=== PATIENT | male | born 1975 | race Caucasian/White ===

== ENCOUNTER 2017-04-07 13:15 | Inpatient (IN) | payer BC, OTHER ==
[~2017-04-07] VITALS: Ht 175.3 cm; Wt 119.7 kg
[2017-04-07] MEDS ORDERED: ONDANSETRON 4 MG/2 ML (SDV) Z0FRAN IVP ONE (13:30)
[2017-04-07] MEDS ORDERED: fentaNYL INJECTION 100 MCG/2 ML AMP IVP ONE (13:30)
[2017-04-07] MEDS ORDERED: NS IV 1000 ML 1,000 ML IV SCH ×3 (13:30→15:15)
--- NOTE | 2017-04-07 13:37 | ED Abdominal Pain ---
General Stated Complaint: STOMACH PAIN Source of Information: Patient Exam Limitations: No Limitations History of Present Illness Time Seen By Provider: 13:33 Initial Comments To ER with mid upper abdominal pain. This began about a week ago and his primary care provider in his home town in [place] started him on Carafate and omeprazole. He reports that these do help. Prior to this he been drinking some hard liquor a couple times per week and states that he typically drinks 5 beers per day however, he's not had any beer since Thursday the 04/03/17. Last night he got some Verena Mix and made a verena. Since then he's had persistent epigastric and mid upper abdominal pain. He has associated nausea but no vomiting. He does also have some diarrhea with this. He took over-the- counter Imodium as well for the diarrhea and states that that has helped with the diarrhea. 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 He had peanut butter last night for dinner thinking that that might help coat his stomach but he has not had any relief from that. He's not had anything to eat since last night associated nausea. Severity/Quality: Moderate Location: Periumbilical Associated Symptoms: No Back Pain, No Chest Pain, No Fever/Chills, Nausea/ Vomiting Allergies and Home Medications Allergies Coded Allergies: No Known Drug Allergies (Unverified , 04/07/17) Home Medications Amlodipine Bes/Olmesartan Med 1 Each Tablet, Unknown Dose PO, (Reported) Citalopram Hydrobromide 10 Mg Tablet, Unknown Dose PO, (Reported) Metformin HCl 500 Mg Tablet, Unknown Dose PO, (Reported) Methylphenidate HCl 18 Mg Tab.er.24, Unknown Dose PO, (Reported) Omeprazole 20 Mg Capsule.dr, Unknown Dose PO, (Reported) Sucralfate 1 Gm Tablet, 1 GM PO QID, (Reported) Vardenafil HCl 5 Mg Tablet, Unknown Dose PO, (Reported) Review of Systems Constitutional: see HPI EENTM: No Symptoms Reported Respiratory: No Symptoms Reported Cardiovascular: No Symptoms Reported Gastrointestinal: See HPI, Abdominal Pain, Nausea Genitourinary: No Symptoms Reported Musculoskeletal: no symptoms reported Skin: no symptoms reported Psychiatric/Neurological: No Symptoms Reported Past Gvuiptb-Ckfmsu-Yrynsc Hx Patient Social History Recent Foreign Travel: No Contact w/Someone Who Travel: No Physical Exam Vital Signs VS - Last 72 Hours, by Label 04/07/17 13:25 Temp 98.1 Pulse 106 Resp 18 B/P (MAP) 108/63 Pulse Ox 95 Capillary Refill : General Appearance: WD/WN, no apparent distress HEENT: PERRL/EOMI, normal ENT inspection Neck: non-tender, full range of motion Respiratory: normal breath sounds, no respiratory distress, no accessory muscle use Cardiovascular: regular rate, rhythm, no murmur Gastrointestinal: normal bowel sounds, soft, tenderness (mid upper abdomen) Extremities: normal range of motion, non-tender Neurologic/Psychiatric: alert, normal mood/affect, oriented x 3 Skin: normal color, warm/dry Progress/Results/Core Measures Results/Orders Lab Results Laboratory Tests Test 04/07/17 13:35 Range/Units White Blood Count 8.8 4.3-11.0 10^3/uL Red Blood Count 5.38 4.35-5.85 10^6/uL Hemoglobin 16.1 13.3-17.7 G/DL Hematocrit 46 40-54 % Mean Corpuscular Volume 85 80-99 FL Mean Corpuscular Hemoglobin 30 25-34 PG Mean Corpuscular Hemoglobin Concent 35 32-36 G/DL Red Cell Distribution Width 14.1 10.0-14.5 % Platelet Count 277 130-400 10^3/uL Mean Platelet Volume 10.7 H 7.4-10.4 FL Neutrophils (%) (Auto) 63 42-75 % Lymphocytes (%) (Auto) 27 12-44 % Monocytes (%) (Auto) 8 0-12 % Eosinophils (%) (Auto) 1 0-10 % Basophils (%) (Auto) 1 0-10 % Neutrophils # (Auto) 5.5 1.8-7.8 X 10^3 Lymphocytes # (Auto) 2.4 1.0-4.0 X 10^3 Monocytes # (Auto) 0.7 0.0-1.0 X 10^3 Eosinophils # (Auto) 0.1 0.0-0.3 10^3/uL Basophils # (Auto) 0.0 0.0-0.1 10^3/uL Sodium Level 139 135-145 MMOL/L Potassium Level 5.5 H 3.6-5.0 MMOL/L Chloride Level 108 H 98-107 MMOL/L Carbon Dioxide Level 15 L 21-32 MMOL/L Anion Gap 16 H 5-14 MMOL/L Blood Urea Nitrogen 61 H 7-18 MG/DL Creatinine 3.30 H 0.60-1.30 MG/DL Estimat Glomerular Filtration Rate 21 BUN/Creatinine Ratio 18 Glucose Level 99 70-105 MG/DL Calcium Level 10.3 H 8.5-10.1 MG/DL Total Bilirubin 0.8 0.1-1.0 MG/DL Aspartate Amino Transf (AST/SGOT) 30 5-34 U/L Alanine Aminotransferase (ALT/SGPT) 44 0-55 U/L Alkaline Phosphatase 119 40-136 U/L Total Protein 8.7 H 6.4-8.2 GM/DL Albumin 4.9 H 3.2-4.5 GM/DL Amylase Level 110 25-125 U/L Lipase 86 H 8-78 U/L Serum Alcohol < 10 <10 MG/DL My Orders Orders - LAYA HEADLEY APRN Cbc With Automated Diff (04/07/17 13:30) Comprehensive Metabolic Panel (04/07/17 13:30) Ua Culture If Indicated (04/07/17 13:30) Amylase (04/07/17 13:30) Lipase (04/07/17 13:30) Saline Lock/Iv-Start (04/07/17 13:30) Ns Iv 1000 Ml (Sodium Chloride 0.9%) (04/07/17 13:30) Ondansetron Injection (Zofran Injectio (04/07/17 13:30) Fentanyl Injection (Sublimaze Injection (04/07/17 13:30) Ct Abdomen/Pelvis Wo (04/07/17 14:06) Antacid Suspension (Mylanta Suspension (04/07/17 14:15) Lidocaine 2% Viscous 15 Ml (Xylocaine Vi (04/07/17 14:15) Alcohol (04/07/17 14:08) Gamma Glutamyl Transpeptidase (04/07/17 14:08) Ekg Tracing (04/07/17 14:09) Ns Iv 1000 Ml (Sodium Chloride 0.9%) (04/07/17 14:30) Medications Given in ED Current Medications Medications Dose Ordered Sig/Lovely Route Start Time Stop Time Status Last Admin Dose Admin Al Hydrox/Mg Hydrox/Simethicone 30 ml ONCE ONCE PO 04/07/17 14:15 04/07/17 14:16 DC 04/07/17 14:13 30 ML Lidocaine HCl 15 ml ONCE ONCE PO 04/07/17 14:15 04/07/17 14:16 DC 04/07/17 14:13 15 ML Ondansetron HCl 4 mg ONCE ONCE IVP 04/07/17 13:30 04/07/17 13:33 DC 04/07/17 13:40 4 MG Vital Signs/I&O Vital Sign - Last 12Hours 04/07/17 13:25 Temp 98.1 Pulse 106 Resp 18 B/P (MAP) 108/63 Pulse Ox 95 Diagnostic Imaging Diagonstic Imaging: CT Comments NAME: ISREAL RODRIGEZ Shayan [facility] REC#: [id number] PT STATUS: REG ER : 1975 PHYSICIAN: LAYA HEADLEY APRN ADMIT DATE: 04/07/17/ER Draft Date of Exam:04/07/17 CT ABDOMEN/PELVIS WO PROCEDURE: CT abdomen and pelvis without contrast. TECHNIQUE: Multiple contiguous axial images were obtained through the abdomen and pelvis without the use of intravenous contrast. INDICATION: Mid abdominal pain. FINDINGS: The lung bases appear clear. In the left hepatic lobe anteriorly there is a low density lesion measuring 0.9 CM with near fat attenuation. This could be a tiny hamartoma. The gallbladder, the spleen, the pancreas, and the adrenal glands appear unremarkable for unenhanced exam. There is a 1 cm low-attenuation lesion in the mid right kidney parenchyma anteriorly, may relate to a cyst. There is no hydronephrosis. No urinary tract stone is seen. The urinary bladder wall appears thickened. Correlate for possible underlying cystitis. Nonspecific calcifications are seen in the prostate which is not significantly enlarged. There is an incompletely visualized low attenuation lesion in the lower aspect of the inguinal canal on the right side measuring at least 3.3 CM in length. It is uncertain if this represents a cystic lesion within the inguinal canal or a retractile testicle. The abdominal aorta is normal in caliber. No para-aortic significantly enlarged lymph node is seen. The appendix appears normal. There are mildly prominent mesenteric lymph nodes up to 8 mm in size, of uncertain significance. There is no bowel obstruction. No significant free fluid or fluid collection in the abdomen or pelvis. The osseous structures demonstrate mild degenerative changes. There is a mild degenerative change at the SI joints. IMPRESSION: 1. There is thickening of the urinary bladder wall, may relate to cystitis. 2. There is an oval low-attenuation lesion in the lower aspect of the right inguinal canal not fully visualized on this exam. This could be a retractile testicle or a cystic lesion. Correlate clinically and with ultrasound evaluation if needed. 3. Nonspecific minimally prominent mesenteric lymph nodes are seen. These could relate to current or prior inflammatory or infectious process. Dictated on workstation # [id number] Dict: 04/07/17 1435 Trans: 04/07/17 1448 [facility] [id number] Interpreted by: LUANN HEREDIA MD Electronically signed by: Departure Communication (Admissions) Time/Spoke to Admitting Phy: 14:58 Communication I discussed the case with Dr. Petersen. We'll admit the patient, IV fluids, nausea medication, repeat industry in the morning. Progress Notes 1420- did discuss with the patient his poor kidney function. He states that he has no known history of this. He states that he has had diarrhea and he did not have any water to drink yesterday, only a glass of milk because of the nausea. I discussed with the office of his PCP Dr Cooley in [place] @ . Last BUN/Cr was 9/1.2 respectively on March 052014 according to office staff. 1509- at this time the patient's pain is completely gone after a GI cocktail and his nausea is completely gone. He states that he feels back to normal. This is likely a gastritis from his alcohol use. I did order fentanyl but he refused this because he reports that his had a history of substance abuse and as such he will not touch it himself. I did advise him of the plan to admit , hydrate and repeat labs in the morning. Hopefully his kidney function has improved and if so we will continue with the current plan. However, if there is no improvement in kidney function and I did tell him he would need to be transferred to another facility potentially or at the very least have follow-up with nephrology and he is agreeable to this. Impression Impression: Primary Impression: Nausea alone Additional Impressions: abdominal pain Acute renal failure Disposition: ADMITTED INPATIENT Condition: Stable Admissions Decision to Admit Reason: Admit from ER (General) Decision to Admit/Date: Apr 07, 2017 Time/Decision to Admit Time: 14:54 Departure-Patient Inst. Referrals: NO,LOCAL PHYSICIAN (PCP/Family) Primary Care Physician LAYA HEADLEY APRN Apr 07, 2017 13:37
[2017-04-07 13:45] LABS: BASOPHILS % (AUTO) 1 % (0-10); EOSINOPHILS # (AUTO) 0.1 10^3/uL (0.0-0.3); EOSINOPHILS % (AUTO) 1 % (0-10); LYMPHOCYTES # (AUTO) 2.4 X 10^3 (1.0-4.0); LYMPHOCYTES % (AUTO) 27 % (12-44); MEAN CORPUSCULAR HEMOGLOBIN 30 PG (25-34); MEAN CORPUSCULAR HGB CONC 35 G/DL (32-36); MEAN CORPUSCULAR VOLUME 85 FL (80-99); MEAN PLATELET VOLUME 10.7 FL (7.4-10.4); MONOCYTES # (AUTO) 0.7 X 10^3 (0.0-1.0); MONOCYTES % (AUTO) 8 % (0-12); NEUTROPHILS # (AUTO) 5.5 X 10^3 (1.8-7.8); NEUTROPHILS % (AUTO) 63 % (42-75); PLATELET COUNT 277 10^3/uL (130-400); RED BLOOD COUNT 5.38 10^6/uL (4.35-5.85); RED CELL DISTRIBUTION WIDTH 14.1 % (10.0-14.5); WHITE BLOOD COUNT 8.8 10^3/uL (4.3-11.0)
[2017-04-07] MEDS ORDERED: AMLO1TAB58 PO (13:55)
[2017-04-07] MEDS ORDERED: CITA10TA12 PO (13:55)
[2017-04-07] MEDS ORDERED: OMEP20CA12 PO (13:55)
[2017-04-07] MEDS ORDERED: SUCR1TAB36 PO (13:55)
[2017-04-07] MEDS ORDERED: VARD5TAB5 PO (13:55)
[2017-04-07] MEDS ORDERED: METH18TA4 PO (13:55)
[2017-04-07] MEDS ORDERED: METF500T4 PO (13:55)
[2017-04-07 14:03] LABS: ALBUMIN 4.9 GM/DL (3.2-4.5); BILIRUBIN,TOTAL 0.8 MG/DL (0.1-1.0); CALCIUM 10.3 MG/DL (8.5-10.1); CREATININE SERUM 3.3 MG/DL (0.60-1.30); POTASSIUM 5.5 MMOL/L (3.6-5.0); TOTAL PROTEIN 8.7 GM/DL (6.4-8.2)
[2017-04-07] MEDS ORDERED: ANTACID SUSP 30 ML UDC (MYLANTA) PO ONE (14:15)
[2017-04-07] MEDS ORDERED: LIDOCAINE 2% VISCOUS 15 ML UDC PO ONE (14:15)
--- NOTE | 2017-04-07 14:48 | Diagnostic Imaging Report ---
PROCEDURE: CT abdomen and pelvis without contrast. TECHNIQUE: Multiple contiguous axial images were obtained through the abdomen and pelvis without the use of intravenous contrast. INDICATION: Mid abdominal pain. FINDINGS: The lung bases appear clear. In the left hepatic lobe anteriorly there is a low density lesion measuring 0.9 CM with near fat attenuation. This could be a tiny hamartoma. The gallbladder, the spleen, the pancreas, and the adrenal glands appear unremarkable for unenhanced exam. There is a 1 cm low-attenuation lesion in the mid right kidney parenchyma anteriorly, may relate to a cyst. There is no hydronephrosis. No urinary tract stone is seen. The urinary bladder wall appears thickened. Correlate for possible underlying cystitis. Nonspecific calcifications are seen in the prostate which is not significantly enlarged. There is an incompletely visualized low attenuation lesion in the lower aspect of the inguinal canal on the right side measuring at least 3.3 CM in length. It is uncertain if this represents a cystic lesion within the inguinal canal or a retractile testicle. The abdominal aorta is normal in caliber. No para-aortic significantly enlarged lymph node is seen. The appendix appears normal. There are mildly prominent mesenteric lymph nodes up to 8 mm in size, of uncertain significance. There is no bowel obstruction. No significant free fluid or fluid collection in the abdomen or pelvis. The osseous structures demonstrate mild degenerative changes. There is a mild degenerative change at the SI joints. IMPRESSION: 1. There is thickening of the urinary bladder wall, may relate to cystitis. 2. There is an oval low-attenuation lesion in the lower aspect of the right inguinal canal not fully visualized on this exam. This could be a retractile testicle or a cystic lesion. Correlate clinically and with ultrasound evaluation if needed. 3. Nonspecific minimally prominent mesenteric lymph nodes are seen. These could relate to current or prior inflammatory or infectious process. Dictated by: Dictated on workstation # [id number]
[2017-04-07 15:42] VITALS: BP 103/68
[2017-04-07 16:17] LABS: KETONES,URINE 1+ (NEGATIVE); LEUKOCYTE ESTERASE ,URINE 2+ (NEGATIVE); NITRITE,URINE NEGATIVE (NEGATIVE); PH,URINE 5 (5-9); PROTEIN,URINE 2+ (NEGATIVE); UROBILINOGEN,URINE 1 MG/DL (NORMAL)
[2017-04-07 16:27] LABS: BILIRUBIN,URINE 2+ (NEGATIVE); CALCIUM OXALATE CRYSTALS,UR MODERATE /LPF
[2017-04-07 16:28] LABS: HYALINE CASTS, URINE >50 /LPF
[2017-04-07] MEDS ORDERED: ONDANSETRON 4 MG/2 ML (SDV) Z0FRAN IV PRN (16:30)
[2017-04-07] MEDS ORDERED: CATHETER FLUSH 10 ML SYR IV PRN (16:30)
[2017-04-07] MEDS ORDERED: ANTACID SUSP 30 ML UDC (MYLANTA) PO PRN (16:30)
[2017-04-07] MEDS ORDERED: CITA20TA7 PO (16:57)
[2017-04-07] MEDS ORDERED: METH54TA10 PO (16:57)
[2017-04-07] MEDS ORDERED: VARD20TA30 PO (16:57)
[2017-04-07] MEDS ORDERED: PIOG1TAB34 PO (16:57)
[2017-04-07] MEDS ORDERED: [UNRECOGNIZED DRUG - CODE] PO (16:57)
[2017-04-07] MEDS: PANTOPRAZOLE 40 MG/10 ML (PROTONIX) VIAL IV SCH (17:05)
[2017-04-07] MEDS: NS IV 1000 ML 1,000 ML IV SCH ×2 (17:05→23:16)
[2017-04-07 19:46] VITALS: BP 102/67
[2017-04-08 00:30] VITALS: BP 96/45
[2017-04-08 04:00] VITALS: BP 120/57
[2017-04-08] MEDS: NS IV 1000 ML 1,000 ML IV SCH (05:53)
[2017-04-08 07:02] LABS: CALCIUM 8.2 MG/DL (8.5-10.1); CREATININE SERUM 1.97 MG/DL (0.60-1.30); POTASSIUM 4.3 MMOL/L (3.6-5.0)
[2017-04-08 07:56] VITALS: BP 96/58
[2017-04-08] MEDS: PANTOPRAZOLE 40 MG/10 ML (PROTONIX) VIAL IV SCH (08:13)
--- NOTE | 2017-04-08 11:01 | Short Stay Summary-Hospitalist ---
HPI History of Present Illness: HPI/Chief Complaint CC: Abdominal pain HPI: This is a 41 yoWM pt who presented to the ER with abdominal pain with nausea and vomiting. Creat elevated at 3.3 and ER did speak with PCP in [place] about his normal Creat level, which is around 1.2. No fever, vitals stable, CBC normal, Creat down from 3.3 to 1.97 Patient Interview: Pt states he is feeling a lot better and he was informed that the fluids have helped his kidneys to look better. Pt denies having pain today and states he does not vomit. Pt confirms eating, a box of cookies, and drinking Physical exam stable Pt confirms seeing PCP in [place] every three months. Pt states he is okay with DC today. Pt states he will increase his fluid intake upon DC. Pt confirms working in [place] now temporarily. Pt is unsure of when he will be going back to [place] though. Scribed by Rupali Claros under the direct supervision of Dr. Seals. 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[employer]) Alcohol Use: Regular Use Number of Drinks Today: 0 Alcohol Beverage of Choice: Beer Recreational Drug Use: No Smoking Status: Never a Smoker Physical Abuse Screen: No Sexual Abuse: No Recent Foreign Travel: No Contact w/other who traveled: No Recent Hopitalizations: No Recent Infectious Disease Expo: No Seasonal Allergies Seasonal Allergies: No Surgeries Yes (TESTICLE SURG) Respiratory No Currently Using CPAP: No Currently Using BIPAP: No Cardiovascular Yes High Cholesterol, Hypertension Neurological No Reproductive System Sexually Transmitted Disease: No Genitourinary No Gastrointestinal Yes Gastroesophageal Reflux Musculoskeletal No Endocrine History of Endocrine Disorders: Yes Endocrine Disorders: Diabetes, Non-Insulin dep HEENT History of HEENT Disorders: No Cancer No Psychosocial History of Psychiatric Problem: Yes Behavioral Health Disorders: ADD/ADHD, Depression Integumentary History of Skin or Integumenta: No Blood Transfusions History of Blood Disorders: No Adverse Reaction to a Blood Tr: No Family Medical History Family Hx: Alcoholism G8 BROTHER Arthritis paternal grandfather paternal grandmother maternal grandfather maternal grandmother Completed stroke paternal grandmother Deafness or hearing loss maternal grandmother Diabetes mellitus paternal grandmother Drug abuse G8 BROTHER Glaucoma maternal grandmother Headache disorder 19 MOTHER Hypercholesterolemia 19 FATHER Hypertension 19 FATHER Severe allergy maternal grandmother Review of Systems Constitutional: see HPI, dizziness, weakness EENTM: no symptoms reported Respiratory: no symptoms reported Cardiovascular: no symptoms reported Gastrointestinal: abdominal pain (LUQ), nausea Genitourinary: decreased output Musculoskeletal: back pain Skin: no symptoms reported Psychiatric/Neurological: No Symptoms Reported All Other Systems Reviewed Negative Unless Noted: Yes Physical Exam Physical Exam Vital Signs Vital Sign - Last 12Hours 04/07/17 04/07/17 13:25 15:42 Temp 98.1 Pulse 106 Resp 18 B/P (MAP) 108/63 Pulse Ox 95 O2 Delivery Room Air Capillary Refill : Less Than 3 Seconds General Appearance: No Apparent Distress, WD/WN, Obese Eyes: Bilateral Eye Normal Inspection, Bilateral Eye PERRL HEENT: PERRL/EOMI, Normal ENT Inspection, Pharynx Normal Neck: Full Range of Motion, Normal Inspection, Non Tender, Supple, Carotid Bruit Respiratory: Chest Non Tender, Lungs Clear, Normal Breath Sounds, No Accessory Muscle Use, No Respiratory Distress Cardiovascular: Regular Rate, Rhythm, No Edema, No Gallop, No JVD, No Murmur, Normal Peripheral Pulses Gastrointestinal: Normal Bowel Sounds, No Organomegaly, No Pulsatile Mass, Non Tender, Soft Back: Normal Inspection, No CVA Tenderness, No Vertebral Tenderness Extremity: Normal Capillary Refill, Normal Inspection, Normal Range of Motion, Non Tender, No Calf Tenderness, No Pedal Edema Neurologic/Psychiatric: Alert, Oriented x3, No Motor/Sensory Deficits, Normal Mood/Affect Skin: Normal Color, Warm/Dry Lymphatic: No Adenopathy Results Results/Procedures Lab Laboratory Tests 04/07/17 13:35 04/08/17 05:20 Short Stay Diagnosis Discharge Diagnosis-Short Stay Admission Diagnosis Assessment: Acute renal failure and diabetic on angiotensin receptor marty and metformin Abdominal pain likely due to renal failure now resolved Nausea now resolved Hypertension Hyperlipidemia Final Discharge Diagnosis Assessment: Acute renal failure and diabetic on angiotensin receptor marty and metformin Abdominal pain likely due to renal failure now resolved Nausea now resolved Hypertension Hyperlipidemia Conclusion Plan Plan: Out-pt labs at [facility] Thursday Increase fluid intake Hold Metformin and ARB Clinical Quality Measures DVT/VTE Risk/Contraindication: Risk Factor Score Per Nursin RFS Level Per Nursing on Admit: 3=High NARENDRA SEALS DO Apr 08, 2017 11:01
[2017-04-08] MEDS ORDERED: AMLO10TA4 PO (11:04)
[2017-04-08 11:50] VITALS: BP 96/58
== END 2017-04-08 11:50 | disposition home or self-care (01) | DRG 684 ==
LOC: ER 13:20 → 4TH 15:17
PROVIDERS: ADMIT Internal Medicine; ATTEND Internal Medicine
DX: N17.9 Acute kidney failure, unspecified (principal); I10 Essential (primary) hypertension; E78.5 Hyperlipidemia, unspecified; E11.9 Type 2 diabetes mellitus without complications; K21.9 Gastro-esophageal reflux disease without esophagitis; Z79.84 Long term (current) use of oral hypoglycemic drugs
CPT/HCPCS: 36415; 74176; 80048; 80053; 80320; 81000; 82150; 82977; 83690; 85025; 87088; 93005; 96361; 96374